=== PATIENT | female | born 1955 | race Two or more races ===

== ENCOUNTER → 2023-03-31 | Day surgery (SDC) | payer OTHER ==
[~2023-03-31] MED LIST: FENTANYL CITRATE/PF 100MCG/2 ML INJ ONE; LACTATED RINGER'S 1,000 ML ONE; MIDAZOLAM HCL 2 MG/2 ML VIAL ONE; OR PHACO EYE KIT ONE; PREOP PHACO EYE KIT ONE
[2023-03-31 11:19] VITALS: TEMP 97.5
[2023-03-31 11:35] VITALS: BP 138/96; PULSE 71; RESP 16; O2SAT 99
== END | disposition home or self-care (01) ==
LOC: OR 07:22
PROVIDERS: ATTEND Ophthalmology
DX: H25.12 Age-related nuclear cataract, left eye (principal); Z88.6 Allergy status to analgesic agent; Z88.0 Allergy status to penicillin
CPT/HCPCS: 66984; J2250; J3010; J7121; V2632